=== PATIENT | male | born 1990 | race Caucasian/White ===

== ENCOUNTER 2021-09-28 12:50 | Emergency (ER) | payer MEDICAID ==
[~2021-09-28] VITALS: Ht 167.6 cm; Wt 77.0 kg
[2021-09-28] MEDS ORDERED: ONDANSETRON 4MG ODT PO STA (16:32)
[2021-09-28] MEDS ORDERED: MAGNESIUM/ALUMINUM HYDROXIDE/SIMETHICONE 30ML UDC PO STA (16:32)
[2021-09-28 18:57] LABS: BASOPHILS % 0.7 % (0.0-2.0); EOSINOPHILS % 0.9 % (0.0-5.0); HEMATOCRIT. 46.2 % (42.0-52.0); HEMOGLOBIN. 16.3 g/dL (14.0-18.0); LYMPHOCYTES % 36.5 % (20.0-50.0); MEAN CORPUSCULAR HEMOGLOBIN 30.6 pg (28.0-32.0); MEAN CORPUSCULAR VOLUME 86.7 fL (80.0-94.0); MONOCYTES % 4.8 % (2.0-8.0); NEUTROPHILS % 57.1 % (40.0-76.0); PLATELET 158 x1000/uL (130-400); RED BLOOD CELL COUNT 5.33 mill/uL (4.7-6.1)
[2021-09-28 19:05] LABS: CHLORIDE 106 mEq/L (98-107)
[2021-09-28] MEDS ORDERED: ONDA4TAB5 MT (20:16)
[2021-09-28 20:29] VITALS: BP 120/78
== END 2021-09-28 20:35 | disposition home or self-care (01) ==
LOC: ER 12:50
DX: R55 Syncope and collapse (principal); R11.2 Nausea with vomiting, unspecified
CPT/HCPCS: 36415; 80053; 82962; 85025; 93005; 99284; Q0162

== ENCOUNTER 2023-05-13 08:23 | Emergency (ER) | payer MEDICAID ==
[~2023-05-13] VITALS: Ht 167.6 cm; Wt 72.7 kg
[~2023-05-13 08:23] MED LIST: ONDA4TAB5 MT
[2023-05-13 08:27] VITALS: O2SAT 99
[2023-05-13 09:43] LABS: CHLORIDE 106 mEq/L (98-107)
[2023-05-13 09:46] LABS: CLARITY URINE CLEAR (CLEAR); COLOR URINE DARK YELLOW (YELLOW); KETONES URINE NEGATIVE (NEGATIVE); LEUKOCYTE ESTERASE URINE NEGATIVE (NEGATIVE); NITRITE URINE NEGATIVE (NEGATIVE); OCCULT BLOOD URINE NEGATIVE (NEGATIVE); PROTEIN URINE TRACE (NEGATIVE); SPECIFIC GRAVITY URINE 1.032 (1.005-1.030)
[2023-05-13 09:55] LABS: BASOPHILS % 0.1 % (0.0-2.0); EOSINOPHILS % 0.1 % (0.0-5.0); HEMATOCRIT. 47.8 % (42.0-52.0); HEMOGLOBIN. 16.9 g/dL (14.0-18.0); LYMPHOCYTES % 9.7 % (20.0-50.0); MEAN CORPUSCULAR HEMOGLOBIN 30.8 pg (28.0-32.0); MEAN CORPUSCULAR VOLUME 87.4 fL (80.0-94.0); MONOCYTES % 5.2 % (2.0-8.0); NEUTROPHILS % 84.9 % (40.0-76.0); RED BLOOD CELL COUNT 5.47 mill/uL (4.7-6.1); RED CELL DISTRIBUTION WIDTH 13.1 % (11.6-14.6)
[2023-05-13 10:49] LABS: PLATELET 166 x1000/uL (130-400)
[2023-05-13 10:54] VITALS: TEMP 97.7
[2023-05-13] MEDS ORDERED: ONDANSETRON HCL 4MG/2ML INJ IV STA (12:08)
[2023-05-13] MEDS ORDERED: KETOROLAC 30MG/ML VIAL IV STA (12:08)
[2023-05-13] MEDS ORDERED: SODIUM CHLORIDE 0.9% 1,000 ML IV ONE (12:15)
[2023-05-13 14:09] VITALS: BP 122/74; PULSE 0; RESP 16
[2023-05-13] MEDS ORDERED: ONDA4TAB50 PO (14:35)
[2023-05-13] MEDS ORDERED: TOPUD PO (14:35)
== END 2023-05-13 17:50 | disposition home or self-care (01) ==
LOC: ER 08:23
DX: R11.2 Nausea with vomiting, unspecified (principal); R19.7 Diarrhea, unspecified; J45.909 Unspecified asthma, uncomplicated
CPT/HCPCS: 80053; 81003; 83690; 85025; 36415; 93005; 96361; 96374; 96375; 99284; J1885; J2405; J7030; Z7610 ×2